=== PATIENT | male | born 1955 | race Caucasian/White ===

== ENCOUNTER → 2023-08-19 | Outpatient (CLI) | payer MEDICARE ==
[2023-08-19 14:55] LABS: Basophils # (A) 0.07 X 10*3/uL (0.00-0.10); Basophils % (A) 0.9 %; Eosinophils # (A) 0.33 X 10*3/uL (0.04-0.35); HCT 44.4 % (39.6-50.0); HGB 14.2 g/dL (13.0-17.0); Lymphocytes # (A) 1.61 X 10*3/uL (0.90-5.00); Lymphocytes % (A) 19.6 %; MCH 29.6 pg (27.0-32.0); MCV 92.5 FL (80.0-97.0); Mean Platelet Volume 10.3 FL (9.5-12.2); Monocytes # (A) 0.76 X 10*3/uL (0.20-1.00); Monocytes % (A) 9.3 %; NRBC Per 100 WBC 0 X 10*3/uL (0.00-0.01); Neutrophils # (A) 5.42 X 10*3/uL (1.80-7.70); Neutrophils % (A) 66.1 %; Platelet Count 323 X 10*3/uL (140-440); RDW 13.8 % (11.5-14.5)
[2023-08-19 15:09] LABS: ALT 22 U/L (10-49); AST 15 U/L (14-35); Albumin/Globulin Ratio 1.67 Ratio (1.60-3.17); Alkaline Phosphatase 107 U/L (41-126); Blood Urea Nitrogen 11.4 mg/dL (9.0-27.0); Calcium 9.5 mg/dL (8.7-10.3); Carbon Dioxide 27.2 mmol/L (21.6-31.8); Chloride 107 mmol/L (96-109); Globulin 2.4 g/dL (1.6-3.3); Glucose 96 mg/dL (70-110); Potassium 5.3 mmol/L (3.5-5.5); Sodium 143 mmol/L (135-145); Total Bilirubin 0.4 mg/dL (0.3-1.2); Total Protein 6.4 g/dL (6.2-8.2)
[2023-08-19 16:06] LABS: INR 0.97 sec (0.93-1.11); Prothrombin Time 10.5 sec (9.9-11.9)
== END | disposition home or self-care (01) ==
LOC: LABPAT 07:25
PROVIDERS: ATTEND Orthopaedic Surgery
DX: Z01.812 Encounter for preprocedural laboratory examination (principal); Z22.322 Carrier or suspected carrier of Methicillin resistant Staphylococcus aureus; M17.12 Unilateral primary osteoarthritis, left knee
CPT/HCPCS: 36415; 80053; 85025; 85610; 87070

== ENCOUNTER 2023-09-16 10:44 | Day surgery (SDC) | payer MEDICARE ==
[2023-09-09 14:58] VITALS: BMI 37.3
--- NOTE | 2023-09-15 09:11 | P.HPOR ---
History of Present Illness H&P Date: 09/15/23 Chief Complaint: left knee pain the patient is a 68-year-old male who presents with progressive left knee pain for the past several years worsening recently. He notes pain, stiffness, and intermittent instability. He notes it limits him from his normal activities. He's tried medications in addition has had a previous arthroscopy with worsening of his symptoms. Review of Systems as per HPI Past Medical History Past Medical History: Blood Disorder, GERD/Reflux, Hyperlipidemia, Osteoarthritis (OA), Prostate Disorder, Pulmonary Embolus (PE) Additional Past Medical History / Comment(s): PE-10/2022. + MTHFR 11/05/22-AT [facility] History of Any Multi-Drug Resistant Organisms: None Reported Past Surgical History: Orthopedic Surgery, Tonsillectomy Additional Past Surgical History / Comment(s): vasectomy, arthroscopy BILAT knee, COLONOSCOPY Past Anesthesia/Blood Transfusion Reactions: No Reported Reaction Smoking Status: Never smoker - Past Family History Father Family Medical History: Cancer Mother Family Medical History: Cancer Medications and Allergies Home Medications Medication Instructions Recorded Confirmed Type Aspirin 81 mg PO DAILY 07/27/15 09/09/23 History Atorvastatin [Lipitor] 20 mg PO HS 09/09/23 09/09/23 History Diclofenac Sodium [Voltaren] 75 mg PO BID 09/09/23 09/09/23 History Folic Acid 1 mg PO DAILY 09/09/23 09/09/23 History Omeprazole 40 mg PO DAILY 09/09/23 09/09/23 History Semaglutide [Ozempic] 0.25 mg SQ MO 09/09/23 09/09/23 History Tamsulosin [Flomax] 0.4 mg PO DAILY 09/09/23 09/09/23 History Allergies Allergy/AdvReac Type Severity Reaction Status Date / Time No Known Allergies Allergy Verified 09/09/23 14:24 Physical Examination - Knee left Appearance: effusion Effusion grade: grade 2 Valgus alignment in stance: 5 degrees Tenderness with palpation: anterior, medial, lateral Pain: throughout ROM Gait: limping ROM: extension: -15 degrees ROM: flexion: 100 degrees Crepitus with motion: Yes Strength: extension: 5/5 Strength: flexion: 5/5 Meniscal tests: lateral meniscal tests: positive, medial joint line pain: positive, lateral joint line pain: positive Results The patient is a well-developed well-nourished male proximal 6 foot tall, 282 pounds of endomorphic habitus. HEENT exam is nonfocal, neck is supple. He has painless passive motion of the left hip. Straight leg raise is negative. He's tender about the lateral and medial joint line of the left knee. Anabella was negative, and Brittanie's is equivocal. He has genu valgum alignment. He has an antalgic gait pattern. His distal neurovascular appears intact in left lower extremity. - Diagnostic results Knee x-ray: image reviewed (3 views of the left knee obtained in the office show severe lateral and patellofemoral compartment osteoarthrosis with subchondral sclerosis and [id number] changes.) Assessment and Plan Assessment: left knee severe lateral and patellofemoral compartment osteoarthrosis History of pulmonary emboli Plan: I talked to the patient at length regarding his condition along with treatment options. At this point he is quite symptomatic and limited having pain and mechanical symptoms related to his left knee osteoarthrosis despite previous conservative measures. After a thorough discussion he opts to proceed with surgery. We'll proceed with left total knee arthroplasty. We will institute DVT prophylaxis postoperatively. Risks and benefits were discussed at length in layman's terms.
[~2023-09-16 10:44] MED LIST: ACETAMINOPHEN TAB 500 MG TAB PO PRN; DEXAMETHASONE SOD PHOSPHATE 4 MG/ML 1 ML VIAL IV ONE; LIDOCAINE 1% (10MG/ML) FOR IV START INTRADERMA PRN; MELOXICAM 7.5 MG TAB PO PRN; METOCLOPRAMIDE 5 MG/ML 2 ML VIAL IVP PRN; MIDAZOLAM 2 MG/2 ML VIAL IV PRN; ONDANSETRON 4 MG/2 ML VIAL IVP ONE; TRANEXAMIC 1,000 MG/100ML-NACL 1,000 MG in SALINE 1 100ML.BAG IVPB PRN; ceFAZolin 3 GM in SODIUM CHLORIDE 0.9% 100 ML IVPB PRN; fentaNYL (PF) 50 MCG/ML 2 ML AMP IVP PRN
[2023-09-16] MEDS: LACTATED RINGERS 1,000 ML IV SCH (11:32)
[2023-09-16 12:03] LABS: Glucose,Whole Blood 91 mg/dL (70-110)
[2023-09-16] MEDS ORDERED: fentaNYL (PF) 50 MCG/ML 2 ML AMP IVP ONE (12:11)
--- NOTE | 2023-09-16 12:37 | P.ANPRN ---
Procedure Note - Anesthesia - Nerve Block Performed Left iPack Single Time Out Performed: Yes Date of Procedure: 09/16/23 Procedure Start Time: 12:08 Procedure Stop Time: 12:13 Location of Patient: PreOp Indication: Acute Post-Operative Pain, Analgesia, Requested by Surgeon Sedation Type: Sedate with meaningful contact maintained Preparation: Sterile Prep Position: Right Lateral Needle Types: Pajunk Needle Gauge: 21 Ultrasound used to visualize needle placement: Yes Ultrasound used to observe medication spread: Yes Injectate: 0.5% Ropivacaine (see comment for volume) (Ropiv 15ml+NS 10ml) Blood Aspirated: No Pain Paresthesia on Injection Noted: No Resistance on Injection: Normal Image Stored and Saved: Yes Events: Uneventful and Well Tolerated
--- NOTE | 2023-09-16 12:39 | P.ANPRN ---
Procedure Note - Anesthesia - Nerve Block Performed Left Adductor Canal Infusion Time Out Performed: Yes Date of Procedure: 09/16/23 Procedure Start Time: 10:35 Procedure Stop Time: 10:42 Location of Patient: PreOp Indication: Acute Post-Operative Pain, Analgesia, Requested by Surgeon Sedation Type: Sedate with meaningful contact maintained Preparation: Sterile Prep Position: Supine Needle Types: On-Q Needle Gauge: 21 Ultrasound used to visualize needle placement: Yes Ultrasound used to observe medication spread: Yes Injectate: 0.5% Ropivacaine (see comment for volume) (Ropiv 10ml+NS5ml) Blood Aspirated: No Pain Paresthesia on Injection Noted: No Resistance on Injection: Normal Image Stored and Saved: Yes Events: Uneventful and Well Tolerated
[2023-09-16] MEDS ORDERED: ROPIVACAINE 0.75% 1,100 MG, SODIUM CHLORIDE 0.9% 500 ML 403 ML, EMPTY PAIN BALL 1 EACH MISCELLANE PRN ×2 (12:43)
[2023-09-16] MEDS ORDERED: MIDAZOLAM 2 MG/2 ML VIAL ONE (13:12)
[2023-09-16] MEDS ORDERED: PROPOFOL 10 MG/ML 20 ML VIAL IV ONE (13:12)
[2023-09-16] MEDS ORDERED: KETAMINE HCL IN 0.9 % NACL 50 MG/5 ML SYRINGE ONE (13:12)
[2023-09-16] MEDS ORDERED: fentaNYL (PF) 50 MCG/ML 2 ML AMP ONE (13:12)
[2023-09-16] MEDS ORDERED: ROPIVACAINE 5 MG/ML 30 ML VIAL ONE (13:12)
[2023-09-16] MEDS ORDERED: TRANEXAMIC 1,000 MG/100ML-NACL PREMIX BAG ONE (13:12)
[2023-09-16] MEDS ORDERED: SODIUM CHLORIDE 0.9% (PF) 10 ML VIAL ONE (13:12)
[2023-09-16] MEDS ORDERED: ceFAZolin 1,000 MG in SODIUM CHLORIDE 0.9% 1,000 ML IRRIGATION ONE (13:39)
[2023-09-16] MEDS ORDERED: HYDROcodone/APAP 5-325MG 1 EACH TAB PO PRN (14:53)
[2023-09-16] MEDS ORDERED: hydrOXYzine pamoate 25 MG CAP PO PRN (14:53)
[2023-09-16] MEDS ORDERED: HYDROmorphone 0.5 MG/0.5 ML SYRINGE IVP PRN ×2 (14:53)
[2023-09-16] MEDS ORDERED: NALOXONE 0.4 MG/ML 1 ML VIAL IV PRN (14:53)
[2023-09-16] MEDS ORDERED: MAGNESIUM HYDROXIDE 2,400 MG/30 ML CUP PO PRN (14:53)
--- NOTE | 2023-09-16 15:23 | P.OP ---
Date of Procedure: 09/16/23 Preoperative Diagnosis: Left knee severe tricompartmental osteoarthrosis Postoperative Diagnosis: Same Procedure(s) Performed: Left total knee arthroplastycementedposterior stabilized Implants: Depuy Attune size 8 cemented femoral component, size 7 cemented tibial component, 11 mm articular surface, 41 mm cemented patellar component. This is a posterior stabilized implant. Anesthesia: regional, spinal Surgeon: Juan Tran Rug Cutter #1: Angel Tejada Estimated Blood Loss (ml): 50 Pathology: none sent Condition: stable Disposition: PACU Indications for Procedure: The patient 68-year-old male who presents with progressive left knee pain secondary to osteoarthrosis despite conservative measures. A discussion of the risks and benefits of operative intervention versus continued conservative measures was made with the patient. He opted to proceed with surgery. Operative risks to include infection, neurovascular injury, development of blood clots, fracture, possible component loosening/failure need for subsequent pr ocedures was discussed. Informed consent was obtained. Operative Findings: As below Description of Procedure: The patient was brought to the operating room, and after induction of spinal anesthesia the left lower extremity was prepped and draped in a normal fashion. The tourniquet was inflated to 270 mm marker. A longitudinal incision extending 3 finger breaths above the superior pole of patella extending to the medial aspect the tibial tubercle was then made. The skin and subcutaneous tissues were divided sharply. Electrocautery was used for hemostasis. A medial parapatellar arthrotomy was performed. The medial soft tissues to include the superficial and deep portions of the medial collateral ligament were elevated subperiosteally. The patella was everted. The lateral collateral ligament as well as the popliteus were elevated subperiosteally off the lateral femoral epicondyle to help with soft tissue balancing. A portion of the retropatellar fat pad was excised sharply. The anterior cruciate ligament was sacrificed. Blunt retractors were placed. A starting hole was made in the distal femur 1 cm anterior to the posterior cruciate ligament origin. An intramedullary femoral guide was then inserted planning on 5 valgus distal cut with 9 mm distal resection. The cutting block was pinned in place. The distal cut was then made. The posterior referencing sizing guide was utilized. I felt size 8 was most appropriate. 3 of external rotation was built into the system and verified off the trans-epicondylar axis and the posterior condyles. The cutting block was pinned in place. The anterior, posterior, and chamfer cuts then made. Bone fragments were removed. The intercondylar guide was placed and the notch cut was made with a sagittal saw. The bone block was removed in one fragment. The trial component was then placed. There is good anterior to posterior and medial to lateral fit. The distal peg holes were drilled. The trial component was removed. Attention was then paid towards preparing the proximal tibia. An extra medullary guide was utilized in line with the tibial shaft and second metatarsal distally. I planned on 8 mm resection from the medial compartment. The cutting block was pinned in place. The proximal tibial cut was then made. The bone was removed in one fragment. The remnants of the medial and lateral menisci were excised at the capsular junction with electrocautery. The tibia sized most appropriately at size 7. The trial femoral and tibial components were placed along with a 11 mm articular surface. I was able to obtain full flexion and extension with internal and external rotation. After several flexion and extension cycles, the tibial rotation was marked with electrocautery line with the medial one third of the tibial tubercle. Attention was then paid towards preparing the patella. A patella reamer was utilized taking stem to 14 mm of bone stock. A good flush cut was made. The patella sized most appropriately 41 mm. The peg holes were drilled. The trial components placed. I had good patellofemoral tracking with no hands technique. The trial components were then removed. The tibia was prepared in the appropriate rotation with appropriate drill and keel punch. The posterior osteophytes were removed with a curved osteotome. The flexion and extension gaps were checked and felt to be symmetric at 11 mm. A trial components were then removed. The bony surfaces were prepared with pulsatile lavage and dried. The tibial component was then cemented place was fully seated. Excess cement was removed. The femoral component cemented place and was fully seated. Excess cement was removed. The trial 11 mm articular surface was placed and the knee was put in full extension. The patella component was cemented place. After the cement had sufficiently hardened, the knee was again taken through a range of motion. Again I was able to obtain full flexion and extension with varus and valgus stress. The trial 11 mm articular surface was removed and the final one inserted. This was fully seated. Care was taken to avoid any soft tissue interposition. Pulsatile lavage was again utilized. The medial parapatellar arthrotomy was closed with #2 Ethibond suture. The tourniquet was deflated with approximately 60 minutes total tourniquet time. Final hemostasis was obtained with the cautery. There was minimal bleeding therefore a deep drain was not placed. The subcutaneous tissues were reapproximated with interrupted 2-0 Vicryl sutures. The skin was reapproximated with 3-0 subcuticular strata fix suture. Skin tape and adhesive was applied. A sterile dressing was applied. The patient was awoken from sedation and transferred to recovery room in good condition. Blood loss was estimated at 50 mL. No complications were incurred. Sponge and needle counts were correct at the end of the case. Angel MONTES DE OCA assisted during the major components of this case to include exposure, bone resection, implantation, and closure.
--- NOTE | 2023-09-16 15:41 | XR ---
EXAMINATION TYPE: XR knee limited LT DATE OF EXAM: 09/16/2023 3:36 PM INDICATION: Patient age:Male; 68 years old; Reason for study: Evaluation for Postop abnormality and alignment; [facility]. COMPARISON: Left knee radiograph 09/02/2022 TECHNIQUE: The Left knee(s) was examined in Frontal and lateral projections. FINDINGS: Post surgical changes from left knee arthroplasty with distal femoral and proximal tibial components. Hardware appears intact with appropriate alignment. There is associated soft tissue kinza a and gas. No acute fracture or dislocation. IMPRESSION: Post surgical changes from left knee arthroplasty. Hardware appears intact with appropriate alignment .
[2023-09-16] MEDS: HYDROmorphone 0.5 MG/0.5 ML SYRINGE IVP PRN ×2 (15:48→15:57)
[2023-09-16] MEDS ORDERED: LACTATED RINGERS 1,000 ML IV ONE (17:10)
[2023-09-16] MEDS ORDERED: DEXTROSE 50% SYRINGE 50 ML IVP PRN ×2 (17:34)
--- NOTE | 2023-09-16 18:39 | P.CONS ---
History of Present Illness - Reason for Consult Consult date: 09/16/23 Medical Management Requesting physician: Juan Tran - History of Present Illness History of Presenting Illness: Patient is a very pleasant 68-year-old male with a past medical history of MTHFR gene mutation, previous unprovoked pulmonary emboli (diagnosed October 2022 was taken off anticoagulation in April after 6 months) GERD, BPH, and osteoarthrosis. He is currently admitted under orthopedic surgery team status post left total knee arthroplasty secondary to left knee severe tricompartmental osteoarthrosis. Surgical procedure was completed by Dr. Tran. We have been consulted for medical management throughout patient's hospitalization. Patient seen and fully evaluated at bedside. He reports mild to moderate postsurgical pain in left knee otherwise currently denies having any complaints or needs. Pt tolerating oral intake and denies any postoperative nausea or vomiting. He does admit to some post-operative urinary retention and has not yet urinated in the post-operative period. Patient denies having any headache, lightheadedness, dizziness, palpitations, shortness of breath, or experiencing any numbness/tingling in his extremities. As stated above he does report mild to moderate postoperative pain and left knee and mild burning sensation in left knee otherwise denies any needs at this time. Review of systems: Pertinent positives and negatives as discussed in HPI, a complete review of systems was performed and all other systems are negative. Physical exam: Vital signs reviewed and stable. General: Nontoxic, no distress and appears stated age. Derm: Skin warm and dry, normal coloration for ethnicity. Head: Atraumatic, normocephalic and symmetric. Eyes: EOMs intact, no lid lag, and anicteric sclera Mouth: no lip lesions, mucus membranes moist Cardiovascular: regular rate and rhythm with normal S1S2, no murmur, positive posterior tibial pulses bilaterally, and cap refill < 2 seconds. Lungs: Respirations even, regular, and unlabored on room air. Lungs CTA bilaterally, no rhonchi, no rales, no wheezing, and no accessory muscle usage. Abdominal: soft, nontender to palpation, no guarding, no appreciable organomegaly Ext: No gross muscle atrophy, no edema, no contractures movement and sensation intact. Post surgical dressing/Shay wrap in place to left knee. Neuro: Speech clear, face symmetrical and CN II-XII grossly intact with no noted focal neuro deficits Psych: Alert and oriented to person, place, time, and situation. Appropriate and pleasant affect. Assessment and Plan of Care: Postoperative urinary retention Monitor weights bladder scans to assess for retention and straight cath as needed for postvoid residual/retention of greater than or equal to 350 cc. Resume Flomax 0.4 mg daily. MTHFR gene mutation History of previous unprovoked pulmonary emboli (diagnosed October 2022 was taken off anticoagulation in April 2023 after 6 months of anticoagulation) -Strongly recommend close management of post-operative DVT prophylaxis secondary to recent history unprovoked PE If patient is not fully ambulatory and back to baseline, highly recommend continuation of postoperative anticoagulation for DVT prophylaxis until patient ambulatory at baseline or for 35 days. GERD, GI prophylaxis with Protonix 40 mg daily. BPH Continuation of Flomax 0.4 mg daily. Osteoarthrosis Status post left total knee arthroplasty Management per primary admitting orthopedic surgery team including DVT prophylaxis, pain management, wound/dressing management, weightbearing, and PT/OT. DVT prophylaxis currently with Xarelto 10 mg daily. Vital signs reviewed and stable. Blood pressure 132/79, heart rate 56, respiratory rate 16, temp 98.7 Fahrenheit, SpO2 96% on room air. Thank you for allowing us to participate in the care of this pleasant patient. Do not hesitate to contact us with questions. Someone can be reached from the [facility] hospitalist group all hours of the day at [phone] or via [employer]. Patient was seen independently by Nurse Practitioner. This document was prepared using [employer] dictation software. Please allow for errors in assembly supervisor while rare they do occur. Past Medical History Past Medical History: Blood Disorder, GERD/Reflux, Hyperlipidemia, Osteoarthritis (OA), Prostate Disorder, Pulmonary Embolus (PE) Additional Past Medical History / Comment(s): PE-10/2022. + MTHFR 11/05/22-AT [facility] History of Any Multi-Drug Resistant Organisms: None Reported Past Surgical History: Orthopedic Surgery, Tonsillectomy Additional Past Surgical History / Comment(s): vasectomy, arthroscopy BILAT knee, COLONOSCOPY Past Anesthesia/Blood Transfusion Reactions: No Reported Reaction Smoking Status: Never smoker - Past Family History Father Family Medical History: Cancer Mother Family Medical History: Cancer Medications and Allergies Home Medications Medication Instructions Recorded Confirmed Type Aspirin 81 mg PO DAILY 07/27/15 09/16/23 History Atorvastatin [Lipitor] 20 mg PO HS 09/09/23 09/16/23 History Diclofenac Sodium [Voltaren] 75 mg PO BID 09/09/23 09/16/23 History Folic Acid 1 mg PO DAILY 09/09/23 09/16/23 History Omeprazole 40 mg PO DAILY 09/09/23 09/16/23 History Semaglutide [Ozempic] 0.25 mg SQ MO 09/09/23 09/16/23 History Tamsulosin [Flomax] 0.4 mg PO DAILY 09/09/23 09/16/23 History Allergies Allergy/AdvReac Type Severity Reaction Status Date / Time No Known Allergies Allergy Verified 09/16/23 11:29 Physical Exam Vitals: Vital Signs Temp Pulse Pulse Resp BP BP Pulse Ox 09/16/23 17:02 56 L 16 117/69 95 09/16/23 16:45 60 16 114/68 95 09/16/23 16:30 55 L 16 115/69 95 09/16/23 16:15 55 L 16 117/70 95 09/16/23 16:02 55 L 16 124/70 95 09/16/23 15:45 56 L 16 130/79 95 09/16/23 15:30 62 16 126/70 95 09/16/23 15:18 97 F L 56 L 16 136/76 93 L 09/16/23 12:28 60 16 117/78 100 09/16/23 11:40 98.0 F 67 18 134/80 95 Intake and Output 09/16/23 09/16/23 09/16/23 06:59 14:59 22:59 Intake Total 701 650 Output Total 50 Balance 651 650 Intake: IV 701 650 Output: Estimated Blood Loss 50 Other: Weight 127.3 kg
[2023-09-16] MEDS: ceFAZolin 3 GM in SODIUM CHLORIDE 0.9% 100 ML IVPB SCH (20:35)
[2023-09-16] MEDS ORDERED: SENNOSIDES-DOCUSATE SODIUM 1 EACH TAB PO SCH (21:00)
[2023-09-16] MEDS ORDERED: ATORVASTATIN 20 MG TAB PO SCH (21:00)
[2023-09-16] MEDS: HYDROcodone/APAP 7.5-325MG 1 EACH TAB PO PRN (22:54)
[2023-09-17] MEDS: HYDROcodone/APAP 7.5-325MG 1 EACH TAB PO PRN ×2 (04:24→09:45)
[2023-09-17] MEDS: ceFAZolin 3 GM in SODIUM CHLORIDE 0.9% 100 ML IVPB SCH (04:25)
[2023-09-17] MEDS ORDERED: PANTOPRAZOLE 40 MG TABLET PO SCH (07:30)
[2023-09-17 08:12] VITALS: BP 96/56; PULSE 74; RESP 16; TEMP 98.6
[2023-09-17 08:47] LABS: Basophils # (A) 0.04 X 10*3/uL (0.00-0.10); Basophils % (A) 0.3 %; Eosinophils # (A) 0.02 X 10*3/uL (0.04-0.35); Eosinophils % (A) 0.1 %; HGB 12.3 g/dL (13.0-17.0); Lymphocytes # (A) 2.52 X 10*3/uL (0.90-5.00); Lymphocytes % (A) 16.9 %; MCH 29.8 pg (27.0-32.0); MCHC 32.4 g/dL (32.0-37.0); Mean Platelet Volume 10.4 FL (9.5-12.2); Monocytes % (A) 8.7 %; NRBC Per 100 WBC 0 X 10*3/uL (0.00-0.01); Neutrophils # (A) 10.99 X 10*3/uL (1.80-7.70); Neutrophils % (A) 73.5 %; Platelet Count 318 X 10*3/uL (140-440); RBC 4.13 X 10*6/uL (4.40-5.60); RDW 13.8 % (11.5-14.5); WBC 14.94 X 10*3/uL (4.50-10.00)
[2023-09-17 09:00] LABS: Blood Urea Nitrogen 17.5 mg/dL (9.0-27.0); Calcium 8.9 mg/dL (8.7-10.3); Carbon Dioxide 24.9 mmol/L (21.6-31.8); Chloride 102 mmol/L (96-109); Glucose 112 mg/dL (70-110); Sodium 136 mmol/L (135-145)
[2023-09-17] MEDS ORDERED: TAMSULOSIN 0.4 MG CAP.ER.24H PO SCH (09:00)
[2023-09-17] MEDS ORDERED: RIVAROXABAN 10 MG TAB PO SCH (09:00)
[2023-09-17] MEDS ORDERED: FOLIC ACID 1 MG TAB PO SCH (09:00)
[2023-09-17] MEDS: LACTATED RINGERS 1,000 ML IV SCH (11:04)
--- NOTE | 2023-09-17 11:40 | P.DS ---
Providers Date of admission: 09/16/2023 Expected date of discharge: 09/17/23 Attending physician: Juan Tran Consults: 09/16/23 14:53 Consult Physician Routine Consulting Provider: Wendy Drummond Consult Reason/Comments: medical management s/p left total knee replacement Do you want consulting provider notified?: Yes Primary care physician: Bala Roach Hospital Course: Date of admission: 09/16/2023 Date of discharge: 09/17/2023 Admission diagnosis: Left knee osteoarthritis Discharge diagnosis: Same Attending physician: Dr. Tran Surgical procedures: Left total knee arthroplasty Brief history: Patient is a 68-year-old male with a history of progressive primary left knee osteoarthritis. At this point patient has failed conservative treatment measures and has opted to proceed with a elective left total knee arthroplasty. Hospital course: Details of patient's surgery can be found in operative report. Patient tolerated the procedure well and was subsequently transported to orthopedic floor. Patient's orthopeidc and medical care was provided daily. Patient had daily laboratory tests performed for evaluation of overall blood counts. Patient had daily physical therapy to include strengthening range of motion as well as education with walker ambulation. Patient was treated with Xarelto for their postoperative DVT prophylaxis during their inpatient stay. Patient was noted to have a relatively uneventful postoperative course. Patient reported satisfactory pain control with oral pain medications by postoperative day 1. Patient showed satisfactory progress with physical therapy. Patient moved steadily through the program and had no difficulty meeting the goals by postoperative day 1. Given patient's otherwise satisfactory course and having met physical therapy goals, plan is to discharge patient home with health services on postoperative day 1. Discharge condition/disposition: Patient will be discharged home with health services in stable condition. Discharge medications: Instructions are given on resumption of patient's normal daily medications per primary care recommendation, in addition patient will be prescribed Blair 7.5 mg/325 mg; Eliquis 2.5 mg twice a day 2 weeks; senna. Discharge instructions: 1. Wound care and infection precautions, keep incision dry and covered while sh owering, no lotions, creams, moisturizers. No soaking, tubs, pools, hottubs. Do not scrub over the incision. 2. Weight-bear as tolerated with walker / cane until follow-up. 3. Ice and elevate when necessary. Do not exceed 20 minutes per hour with ice pack. 4. Utilize compression sleeve until seen at first follow up appointment. 5. Visiting nursing care. 6. Home physical therapy including home CPM. 7. Pain meds and anticoagulants per prescription. 8. Pain medication has potential to cause constipation. Increase oral fluid and fiber intake. Contact primary care provider if you have not had a bowel movement within 48 hours after discharge 9. No anti-inflammatory medication until discussed at first post operative visit, this including Motrin, Aleve, Mobic, Diclofenac, Aspirin. 10. Follow up in office at 2 weeks postop with Raimundo Rayo PA-C / Angel Tejada PA-C 11. Follow up with your primary care doctor 7-10 days after discharge. 12. Contact [facility] with any questions, . Assessment: Left knee osteoarthritis Procedures: Left total knee arthroplasty Patient Condition at Discharge: Good Plan - Discharge Summary Discharge Rx Participant: Yes New Discharge Prescriptions: New Sennosides/Docusate Sodium [Senna Plus 8.6-50 mg Softgel] 1 each PO DAILY #20 capsule Apixaban [Eliquis] 2.5 mg PO BID #60 tab HYDROcodone/APAP 7.5-325MG [Blair 7.5-325] 1 - 2 tab PO Q6HR PRN #36 tab PRN Reason: Pain Continue Tamsulosin [Flomax] 0.4 mg PO DAILY Folic Acid 1 mg PO DAILY Atorvastatin [Lipitor] 20 mg PO HS Omeprazole 40 mg PO DAILY Discontinued Aspirin 81 mg PO DAILY No Action Semaglutide [Ozempic] 0.25 mg SQ MO Diclofenac Sodium [Voltaren] 75 mg PO BID Discharge Medication List Atorvastatin [Lipitor] 20 mg PO HS 09/09/23 [History] Diclofenac Sodium [Voltaren] 75 mg PO BID 09/09/23 [History] Folic Acid 1 mg PO DAILY 09/09/23 [History] Omeprazole 40 mg PO DAILY 09/09/23 [History] Semaglutide [Ozempic] 0.25 mg SQ MO 09/09/23 [History] Tamsulosin [Flomax] 0.4 mg PO DAILY 09/09/23 [History] Apixaban [Eliquis] 2.5 mg PO BID #60 tab 09/17/23 [Rx] HYDROcodone/APAP 7.5-325MG [Blair 7.5-325] 1 - 2 tab PO Q6HR PRN #36 tab 09/17/23 [Rx] Sennosides/Docusate Sodium [Senna Plus 8.6-50 mg Softgel] 1 each PO DAILY #20 capsule 09/17/23 [Rx] Follow up Appointment(s)/Referral(s): Angel Tejada, PAC [PHYSICIAN OUTSIDE MEDICAL SALES REPRESENTATIVE] - 10/02/23 8:50 am [facility] [NON-STAFF] - As Needed (Continuous Passive Motion knee machine and walker.) [facility], [NON-STAFF] - As Needed Patient Instructions/Handouts: Knee Replacement (DC), Knee Replacement (GEN) Activity/Diet/Wound Care/Special Instructions: Discharge instructions: 1. Wound care and infection precautions, keep incision dry and covered while showering, no lotions, creams, moisturizers. No soaking, tubs, pools, hottubs. Do not scrub over the incision. 2. Weight-bear as tolerated with walker / cane until follow-up. 3. Ice and elevate when necessary. Do not exceed 20 minutes per hour with ice pack. 4. Utilize compression sleeve until seen at first follow up appointment. 5. Visiting nursing care. 6. Home physical therapy including home CPM. 7. Pain meds and anticoagulants per prescription. 8. Pain medication has potential to cause constipation. Increase oral fluid and fiber intake. Contact primary care provider if you have not had a bowel movement within 48 hours after discharge 9. No anti-inflammatory medication until discussed at first post operative visit, this including Motrin, Aleve, Mobic, Diclofenac, Aspirin. 10. Follow up in office at 2 weeks postop with Raimundo Rayo PA-C / Angel Tejada PA-C 11. Follow up with your primary care doctor 7-10 days after discharge. 12. Contact [facility] with any questions, . Keep incision clean, dry, intact. While showering, cover fusion tape with Saran wrap. Keep fusion tape on until follow-up appointment in office in 2 weeks. Discharge Disposition: HOME WITH HOME HEALTH SERVICES
--- NOTE | 2023-09-17 11:43 | P.PN ---
Subjective Progress Note Date: 09/17/23 Principal diagnosis: Left knee osteoarthritis Patient was seen at bedside this morning lying in semirecumbent position with dressing over left knee. Patient says he did work with therapy this morning and walked down the [place] and up-and-down stairs. Patient says he does need a walker for home. Patient says he has urinated several times since surgery yesterday. Patient says he has not had a bowel movement yet, however, he says he has been passing gas. Patient is looking forward to going home later stay. Patient denies chest pain, fever, shortness breath, nausea, vomiting, change in vision, loss of bowel/bladder control. Objective - Vital Signs Vital signs: Vital Signs Temp 98.6 F 09/17/23 07:58 Pulse 74 09/17/23 07:58 Resp 16 09/17/23 07:58 BP 96/56 09/17/23 07:58 Pulse Ox 94 L 09/17/23 07:58 FiO2 Intake & Output 09/16/23 09/17/23 09/17/23 18:59 06:59 18:59 Intake Total 1951 200 Output Total 50 Balance 1901 200 Weight 127.3 kg Intake: IV 1351 Intake, IV Titration 100 Amount Lactated Ringers 1,000 ml 100 @ 0 mls/hr IV .[facility] Rx#:[id number] Oral 500 200 Output: Estimated Blood Loss 50 Other: Voiding Method Toilet - Exam Left knee: Incision is clean, dry, and intact. The exofin fusion tape is in good condition. There is minimal soft tissue swelling and ecchymosis surrounding the medial and lateral aspects of the incision. Calf is soft, no tenderness with palpation. Plantar flexion, dorsiflexion, EHL, FHL are intact. Sensory exam to light touch throughout the extremity is intact, dorsal pedis pulses 2+. - Labs CBC & Chem 7: 09/17/23 05:02 09/17/23 05:02 Labs: Abnormal Lab Results - Last 24 Hours (Table) 09/17/23 09/17/23 Range/Units 05:02 05:02 WBC 14.94 H (4.50-10.00) X 10*3/uL RBC 4.13 L (4.40-5.60) X 10*6/uL Hgb 12.3 L (13.0-17.0) g/dL Hct 38.0 L (39.6-50.0) % Immature Gran # 0.07 H (0.00-0.04) X 10*3/uL Neutrophils # 10.99 H (1.80-7.70) X 10*3/uL Monocytes # 1.30 H (0.20-1.00) X 10*3/uL Eosinophils # 0.02 L (0.04-0.35) X 10*3/uL Glucose 112 H (70-110) mg/dL Assessment and Plan Assessment: 1. Left knee osteoarthritis - Postop day #1 status post left total knee arthroplasty Plan: 1. Left knee osteoarthritis - left total knee arthroplasty performed yesterday, 09/16/2023. Patient stable at bedside this morning. Patient did do well with therapy this morning. Prescription for walker signed. Discharge home today with health services. 2. Appreciate medical management 3. Pain management - [place] 4. DVT prophylaxis - going home with Eliquis 2.5 mg twice a day 2 weeks 5. GI prophylaxis - senna 6. PT/OT - weightbearing as tolerated with walker 7. Encourage incentive spirometer use 8. Discharge planning - home today with health services Time with Patient: Less than 30
--- NOTE | 2023-09-17 13:33 | P.PN ---
Subjective Progress Note Date: 09/17/23 Hospital Course: Patient is a very pleasant 68-year-old male with a past medical history of MTHFR gene mutation, previous unprovoked pulmonary emboli (diagnosed October 2022 was taken off anticoagulation in April after 6 months) GERD, BPH, and osteoarthrosis. He is currently admitted under orthopedic surgery team status post left total knee arthroplasty secondary to left knee severe tricompartmental osteoarthrosis. Surgical procedure was completed by Dr. Tran. We have been consulted for medical management throughout patient's hospitalization. Physical exam: Patient seen and fully evaluated at bedside this morning. He is postoperative day 1. Vital signs reviewed and stable. General: Nontoxic, no distress and appears stated age. Derm: Skin warm and dry, normal coloration for ethnicity. Head: Atraumatic, normocephalic and symmetric. Eyes: EOMs intact, no lid lag, and anicteric sclera Mouth: no lip lesions, mucus membranes moist Cardiovascular: regular rate and rhythm with normal S1S2, no murmur, positive posterior tibial pulses bilaterally, and cap refill < 2 seconds. Lungs: Respirations even, regular, and unlabored on room air. Lungs CTA bilaterally, no rhonchi, no rales, no wheezing, and no accessory muscle usage. Abdominal: soft, nontender to palpation, no guarding, no appreciable organomegaly Ext: No gross muscle atrophy, no edema, no contractures movement and sensation intact. Post surgical dressing/Shay wrap in place to left knee. Neuro: Speech clear, face symmetrical and CN II-XII grossly intact with no noted focal neuro deficits Psych: Alert and oriented to person, place, time, and situation. Appropriate and pleasant affect. Assessment and Plan of Care: Acute postoperative blood loss anemia Postoperative leukocytosis, reactive Postoperative urinary retention, resolved. Acute postoperative blood loss anemia with preoperative hemoglobin of 14.2 and postoperative hemoglobin of 12.3. This is a stable and expected finding. No active bleeding. No need for transfusion or any further interventions or testing at this time. Leukocytosis with WBC count of 14.94, this is believed to be reactive secondary to surgical procedure. No signs of infection. No need for intervention or further testing at this time. Patient initially had postoperative urinary retention, patient now reports full resolution of urinary retention and states that he is urinating without any difficulties. Continue Flomax 0.4 mg daily. MTHFR gene mutation History of previous unprovoked pulmonary emboli (diagnosed October 2022 was taken off anticoagulation in April 2023 after 6 months of anticoagulation) -Strongly recommend close management of post-operative DVT prophylaxis secondary to recent history unprovoked PE If patient is not fully ambulatory and back to baseline, highly recommend continuation of postoperative anticoagulation for DVT prophylaxis until patient ambulatory at baseline or for 35 days. GERD, GI prophylaxis with Protonix 40 mg daily. BPH Continuation of Flomax 0.4 mg daily. Osteoarthrosis Status post left total knee arthroplasty Management per primary admitting orthopedic surgery team including DVT prophylaxis, pain management, wound/dressing management, weightbearing, and PT/OT. DVT prophylaxis currently with Xarelto 10 mg daily. Data reviewed: Vital signs reviewed and stable. Blood pressure slightly low this morning at 98/56, heart rate 74, respiratory rate 16, temp 98.6 F, and SpO2 of 94% on room air. Postoperative labs reviewed. CBC showing mild leukocytosis with WBC count of 14.94 and acute blood loss anemia with hemoglobin of 12.3. Preoperative h emoglobin was 14.2. BMP was unremarkable and magnesium was 2.0. Thank you for allowing us to participate in the care of this pleasant patient. Do not hesitate to contact us with questions. Someone can be reached from the [facility] hospitalist group all hours of the day at [phone] or via perfect serve. Patient was seen independently by Nurse Practitioner. This document was prepared using TouchMail dictation software. Please allow for errors in bag patcher while rare they do occur. Objective - Vital Signs Vital signs: Vital Signs Temp 98.6 F 09/17/23 07:58 Pulse 74 09/17/23 07:58 Resp 16 09/17/23 07:58 BP 96/56 09/17/23 07:58 Pulse Ox 94 L 09/17/23 07:58 FiO2 Intake & Output 09/16/23 09/17/23 09/17/23 18:59 06:59 18:59 Intake Total 1951 200 Output Total 50 Balance 1901 200 Weight 127.3 kg Intake: IV 1351 Intake, IV Titration 100 Amount Lactated Ringers 1,000 ml 100 @ 0 mls/hr IV .[facility] Rx#:[id number] Oral 500 200 Output: Estimated Blood Loss 50 Other: Voiding Method Toilet - Labs CBC & Chem 7: 09/17/23 05:02 09/17/23 05:02 Labs: Abnormal Lab Results - Last 24 Hours (Table) 09/17/23 09/17/23 Range/Units 05:02 05:02 WBC 14.94 H (4.50-10.00) X 10*3/uL RBC 4.13 L (4.40-5.60) X 10*6/uL Hgb 12.3 L (13.0-17.0) g/dL Hct 38.0 L (39.6-50.0) % Immature Gran # 0.07 H (0.00-0.04) X 10*3/uL Neutrophils # 10.99 H (1.80-7.70) X 10*3/uL Monocytes # 1.30 H (0.20-1.00) X 10*3/uL Eosinophils # 0.02 L (0.04-0.35) X 10*3/uL Glucose 112 H (70-110) mg/dL
== END 2023-09-17 13:46 | disposition home health service (06) ==
LOC: OR 10:44 → 4SSUR 15:13 → OR 09-17 13:46
PROVIDERS: ATTEND Orthopaedic Surgery
DX: M17.12 Unilateral primary osteoarthritis, left knee (principal); E78.5 Hyperlipidemia, unspecified; K21.9 Gastro-esophageal reflux disease without esophagitis; Z79.01 Long term (current) use of anticoagulants; Z79.82 Long term (current) use of aspirin; Z79.899 Other long term (current) drug therapy; Z86.711 Personal history of pulmonary embolism; Z79.1 Long term (current) use of non-steroidal anti-inflammatories (NSAID); Z79.84 Long term (current) use of oral hypoglycemic drugs
CPT/HCPCS: 97161; 64999; 64448; 80048; 83735; 85025; 73560; 27447; C1713 ×2; C1776; C1751; J2250; J1100; J0690 ×3; J2405; J3010; J1170; J2795

== ENCOUNTER 2023-09-18 04:59 | Emergency (ER) | payer MEDICARE ==
[2023-09-18 05:28] VITALS: PULSE 84; RESP 18
--- NOTE | 2023-09-18 07:01 | ED ---
Extremity Problem HPI - General Chief complaint: Extremity Problem,Nontraumatic Stated complaint: post op left leg pain Time Seen by Provider: 09/18/23 06:19 Source: patient, RN notes reviewed Mode of arrival: wheelchair Limitations: no limitations - History of Present Illness Initial comments: 68-year-old male presents emergency department with chief complaint of left leg pain, swelling. Patient states he had knee surgery 2 days ago. Patient states he was discharged yesterday he states he had a history of PE. Patient states that he is not on any anticoagulants but states he started pain in the back of his leg which he is unsure if this is normal or not. Patient states he has no chest pain or shortness of breath. Patient states he felt like he had a fever but no recorded time. Denies any redness or drainage from his incision. - Related Data Home Medications Medication Instructions Recorded Confirmed Atorvastatin [Lipitor] 20 mg PO HS 09/09/23 09/16/23 Diclofenac Sodium [Voltaren] 75 mg PO BID 09/09/23 09/16/23 Folic Acid 1 mg PO DAILY 09/09/23 09/16/23 Omeprazole 40 mg PO DAILY 09/09/23 09/16/23 Semaglutide [Ozempic] 0.25 mg SQ MO 09/09/23 09/16/23 Tamsulosin [Flomax] 0.4 mg PO DAILY 09/09/23 09/16/23 Previous Rx's Medication Instructions Recorded Apixaban [Eliquis] 2.5 mg PO BID #60 tab 09/17/23 HYDROcodone/APAP 7.5-325MG [Marianna 1 - 2 tab PO Q6HR PRN #36 tab 09/17/23 7.5-325] Sennosides/Docusate Sodium [Senna 1 each PO DAILY #20 capsule 09/17/23 Plus 8.6-50 mg Softgel] Allergies Allergy/AdvReac Type Severity Reaction Status Date / Time No Known Allergies Allergy Verified 09/16/23 11:29 Review of Systems ROS Statement: Those systems with pertinent positive or pertinent negative responses have been documented in the HPI. ROS Other: All systems not noted in ROS Statement are negative. Past Medical History Past Medical History: Hyperlipidemia, Osteoarthritis (OA) Additional Past Medical History / Comment(s): arthritis History of Any Multi-Drug Resistant Organisms: None Reported Past Surgical History: Joint Replacement Additional Past Surgical History / Comment(s): vasectomy, arthroscopy knee Past Anesthesia/Blood Transfusion Reactions: No Reported Reaction Past Psychological History: No Psychological Hx Reported Smoking Status: Never smoker Past Alcohol Use History: Occasional Past Drug Use History: None Reported - Past Family History Father Family Medical History: Cancer Mother Family Medical History: Cancer General Exam Limitations: no limitations General appearance: alert, in no apparent distress Head exam: Present: atraumatic, normocephalic, normal inspection Eye exam: Present: normal appearance, PERRL, EOMI. Absent: scleral icterus, conjunctival injection, periorbital swelling ENT exam: Present: normal exam, mucous membranes moist Neck exam: Present: normal inspection. Absent: tenderness, meningismus, lymphadenopathy Respiratory exam: Present: normal lung sounds bilaterally. Absent: respiratory distress, wheezes, rales, rhonchi, stridor Cardiovascular Exam: Present: regular rate, normal rhythm, normal heart sounds. Absent: systolic murmur, diastolic murmur, rubs, gallop, clicks Extremities exam: Present: other (Left knee incision well-approximated, no erythema no drainage there is diffuse swelling of the left leg) Neurological exam: Present: alert Skin exam: Present: warm, dry, intact, normal color. Absent: rash Course Vital Signs 09/18/23 05:02 Temperature 98.9 F Pulse Rate 84 Respiratory 18 Rate Blood Pressure 112/67 O2 Sat by Pulse 95 Oximetry Medical Decision Making - Medical Decision Making Was pt. sent in by a medical professional or institution (FALGUNI Hayden, CIGARETTE MACHINE OPERATOR, urgent care, hospital, or longterm...) When possible be specific @ -No Did you speak to anyone other than the patient for history (EMS, parent, family, police, friend...)? What history was obtained from this source @ -No Did you review nursing and triage notes (agree or disagree)? Why? @ -I reviewed and agree with nursing and triage notes Were old charts reviewed (outside hosp., previous admission, EMS record, old EKG, old radiological studies, urgent care reports/EKG's, longterm records)? Report findings @ -[Review reviewed recent surgical records, and patient laboratory studies Differential Diagnosis (chest pain, altered mental status, abdominal pain women, abdominal pain men, vaginal bleeding, weakness, fever, dyspnea, syncope, headache, dizziness, GI bleed, back pain, seizure, CVA, palpatations, mental health, musculoskeletal)? @ -Knee pain, postsurgical pain, DVT EKG interpreted by me (3pts min.). @ -None X-rays interpreted by me (1pt min.). @ -[None done CT interpreted by me (1pt min.). @ -None done U/S interpreted by me (1pt. min.). @ -[Ultrasound venous Doppler negative for acute DVT of the left leg What testing was considered but not performed or refused? (CT, X-rays, U/S, labs)? Why? @ -None What meds were considered but not given or refused? Why? @ -None Did you discuss the management of the patient with other professionals (professionals i.e. , PA, CIGARETTE MACHINE OPERATOR, lab, RT, psych nurse, group social worker, senior health physics technician, teacher, hospital admissions officer, counseling case manager)? Give summary @ -No Was smoking cessation discussed for >3mins.? @ -No Was critical care preformed (if so, how long)? @ -No Were there social determinants of health that impacted care today? How? (Homelessness, low income, unemployed, alcoholism, drug addiction, tr ansportation, low edu. Level, literacy, decrease access to med. care, assisted, rehab)? @ -No Was there de-escalation of care discussed even if they declined (Discuss DNR or withdrawal of care, Hospice)? DNR status @ -No What co-morbidities impacted this encounter? (DM, HTN, Smoking, COPD, CAD, Cancer, CVA, ARF, Chemo, Hep., AIDS, mental health diagnosis, sleep apnea, morbid obesity)? @ -None Was patient admitted / discharged? Hospital course, mention meds given and route, prescriptions, significant lab abnormalities, going to OR and other pertinent info. @ -[Discharge patient is afebrile here he reported possible fever at home. Patient's white count has improved from laboratory studies yesterday. Patient has close follow-up with orthopedic surgeon we discussed strict return parameters. Undiagnosed new problem with uncertain prognosis? @ -No Drug Therapy requiring intensive monitoring for toxicity (Heparin, Nitro, Insulin, Cardizem)? @ -No Were any procedures done? @ -No Diagnosis/symptom? @ -[Left leg pain Acute, or Chronic, or Acute on Chronic? @ -Acute Uncomplicated (without systemic symptoms) or Complicated (systemic symptoms)? @ -uncomplicated Side effects of treatment? @ -No Exacerbation, Progression, or Severe Exacerbation? @ -No Poses a threat to life or bodily function? How? (Chest pain, [place], [place], pneumonia, PE, COPD, DKA, ARF, appy, cholecystitis, CVA, Diverticulitis, Homicidal, Suicidal, threat to staff... and all critical care pts) @ -No - Lab Data Result diagrams: 09/18/23 06:44 09/18/23 06:44 Lab Results 09/18/23 09/18/23 Range/Units 06:44 06:44 WBC 13.2 H (3.8-10.6) k/uL RBC 4.16 L (4.30-5.90) m/uL Hgb 12.7 L (13.0-17.5) gm/dL Hct 38.0 L (39.0-53.0) % MCV 91.4 (80.0-100.0) fL MCH 30.5 (25.0-35.0) pg MCHC 33.4 (31.0-37.0) g/dL RDW 13.5 (11.5-15.5) % Plt Count 283 (150-450) k/uL MPV 7.8 Neutrophils % 75 % Lymphocytes % 13 % Monocytes % 9 % Eosinophils % 1 % Basophils % 0 % Neutrophils # 10.0 H (1.3-7.7) k/uL Lymphocytes # 1.8 (1.0-4.8) k/uL Monocytes # 1.2 H (0-1.0) k/uL Eosinophils # 0.1 (0-0.7) k/uL Basophils # 0.0 (0-0.2) k/uL Sodium 138 (137-145) mmol/L Potassium 4.1 (3.5-5.1) mmol/L Chloride 104 (98-107) mmol/L Carbon Dioxide 27 (22-30) mmol/L Anion Gap 7 mmol/L BUN 14 (9-20) mg/dL Creatinine 0.78 (0.66-1.25) mg/dL Est GFR (CKD-EPI)AfAm >90 (>60 ml/min/1.73 sqM) Est GFR (CKD-EPI)NonAf >90 (>60 ml/min/1.73 sqM) Glucose 112 H (74-99) mg/dL Calcium 8.5 (8.4-10.2) mg/dL Total Bilirubin 0.8 (0.2-1.3) mg/dL AST 17 (17-59) U/L ALT 18 (4-49) U/L Alkaline Phosphatase 81 (38-126) U/L Total Protein 5.9 L (6.3-8.2) g/dL Albumin 3.3 L (3.5-5.0) g/dL Disposition Clinical Impression: Pain in left leg, S/P TKR (total knee replacement) Disposition: HOME SELF-CARE Condition: Stable Instructions (If sedation given, give patient instructions): Leg Pain (ED) Additional Instructions: Please return to the Emergency Department if symptoms worsen or any other concerns. Is patient prescribed a controlled substance at d/c from ED?: No Referrals: Bala Roach MD [Primary Care Provider] - 1-2 days Time of Disposition: 08:01
--- NOTE | 2023-09-18 07:39 | US ---
EXAMINATION TYPE: US venous doppler duplex LE LT DATE OF EXAM: 09/18/2023 5:16 AM COMPARISON: NONE CLINICAL INDICATION: Male, 68 years old with history of swelling and pain; Hx PE; Left knee replaceme nt 09/16/2023; Calf Pain and swelling x 1 days SIDE PERFORMED: Left TECHNIQUE: The lower extremity deep venous system is examined utilizing real time linear array sonog kiet with graded compression, doppler sonography and color-flow sonography. VESSELS IMAGED: Common Femoral Vein Deep Femoral Vein Greater Saphenous Vein * Femoral Vein Popliteal Vein Small Saphenous Vein * Proximal Calf Veins (* superficial vessels) Right Leg: NA Left Leg: Negative for DVT IMPRESSION: No evidence for DVT within the left lower extremity imaged from the groin to the upper ca lf.
[2023-09-18 07:47] LABS: Basophils % (A) 0 %; Eosinophils # (A) 0.1 k/uL (0-0.7); Eosinophils % (A) 1 %; HGB 12.7 gm/dL (13.0-17.5); Lymphocytes # (A) 1.8 k/uL (1.0-4.8); Lymphocytes % (A) 13 %; MCH 30.5 pg (25.0-35.0); MCHC 33.4 g/dL (31.0-37.0); MCV 91.4 fL (80.0-100.0); Mean Platelet Volume 7.8; Monocytes # (A) 1.2 k/uL (0-1.0); Monocytes % (A) 9 %; Neutrophils % (A) 75 %; Platelet Count 283 k/uL (150-450); RBC 4.16 m/uL (4.30-5.90); RDW 13.5 % (11.5-15.5); WBC 13.2 k/uL (3.8-10.6)
[2023-09-18 07:55] LABS: ALT 18 U/L (4-49); AST 17 U/L (17-59); African American GFR (CKD) >90 (>60 ml/min/1.73 sqM); Albumin 3.3 g/dL (3.5-5.0); Alkaline Phosphatase 81 U/L (38-126); Anion Gap 7 mmol/L; Blood Urea Nitrogen 14 mg/dL (9-20); Calcium 8.5 mg/dL (8.4-10.2); Carbon Dioxide 27 mmol/L (22-30); Chloride 104 mmol/L (98-107); Glucose 112 mg/dL (74-99); Non-African American GFR(CKD) >90 (>60 ml/min/1.73 sqM); Potassium 4.1 mmol/L (3.5-5.1); Sodium 138 mmol/L (137-145); Total Bilirubin 0.8 mg/dL (0.2-1.3); Total Protein 5.9 g/dL (6.3-8.2)
[2023-09-18 09:12] VITALS: BP 118/76; TEMP 98.4
[2023-09-18 09:16] LABS: C Reactive Protein 21.8 mg/dL (<1.0)
[2023-09-18 11:44] LABS: Erythrocyte Sedimentation Rate 30 mm/Hr (0-20)
== END 2023-09-18 09:00 | disposition home or self-care (01) ==
LOC: EC 04:59
DX: M79.605 Pain in left leg (principal); Z96.652 Presence of left artificial knee joint; E78.5 Hyperlipidemia, unspecified; M19.90 Unspecified osteoarthritis, unspecified site; Z79.899 Other long term (current) drug therapy
CPT/HCPCS: 36415; 80053; 85025; 85652; 86140; 99284